=== PATIENT | male | born 1980 | race Caucasian/White ===

== ENCOUNTER 2017-12-19 23:03 | Emergency (ER) | payer OTHER ==
[2017-12-19] MEDS ORDERED: NS 1,000 ML IV ONE (23:09)
--- NOTE | 2017-12-19 23:09 | EDPHY ---
H & P Stated Complaint: Ketamine use, confused, slow to mentate Time Seen by Provider: 12/19/17 23:09 HPI/ROS: HPI CHIEF COMPLAINT: Altered mental status, drug overdose, ketamine abuse HISTORY OF PRESENT ILLNESS: Patient is a 37-year-old male, presents emergency room by EMS after police made contact with him at his local residence as he was causing in noise disturbance. Neighbors called 911. He admits to using ketamine tonight. He injects ketamine intramuscularly. He buys the ketamine online. 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 He states he has been abusing ketamine for the past year to 2 years. He likes the way it makes him feel. He states he gets high. He presents emergency room any slow to mentate he does answer questions appropriately but is very slow and appears intoxicated. He denies any other comma ingestions denies narcotics or alcohol. Denies benzos. States that he does ketamine regularly. Past Medical History: Denies medical history Past Surgical History: Denies surgical history Social History: Abuses ketamine. Family History: Noncontributory ROS REVIEW OF SYSTEMS: 10 Systems were reviewed and negative with the exception of the elements mentioned in the history of present illness. Exam Constitutional nontoxic however appears under the influence of drugs with slow to respond triage nursing summary reviewed, vital signs reviewed, awake/alert. Vital signs stable. Eyes normal conjunctivae and sclera, EOMI, PERRLA. HENT normal inspection, atraumatic, moist mucus membranes, no epistaxis, neck supple/ no meningismus, no raccoon eyes. Respiratory clear to auscultation bilaterally, normal breath sounds, no respiratory distress, no wheezing. Cardiovascular rate normal, regular rhythm, no murmur, no edema, distal pulses normal. Gastrointestinal soft, non-tender, no rebound, no guarding, normal bowel sounds, no distension, no pulsatile mass. Genitourinary no CVA tenderness. Musculoskeletal no midline vertebral tenderness, full range of motion, no calf swelling, no tenderness of extremities, no meningismus, good pulses, neurovascularly intact. Skin pink, warm, & dry, no rash, skin atraumatic. Neurologic slow to respond, moves all 4 extremities equally, motor intact, sensory intact, CN II-XII intact, normal cerebellar, normal vision slow speech. Slight horizontal beating nystagmus. Psychiatric normal mood/affect. Heme/Lymph/Immune no lymphadenopathy. Differential Diagnosis: Includes but is not limited to in a particular order ketamine abuse, ketamine overdose, intracranial bleed, electrolyte disturbance, other drug intoxication Medical Decision Making: Plan for this patient IV establishment clinical research monitor , IV fluid bolus, drug screen, alcohol level, basic electrolytes, CT scan head without contrast due to altered mental status, and somewhat slow to respond. Could possibly be due to ketamine use. Re-evaluation: CT scan head without contrast indication altered mental status, negative for acute bleed. Called my Dr. Lawler. [id number]: Patient re-evaluated this time resting comfortably no acute distress. He is now 100% clinically sober answers questions appropriately. He denies any physical complaints this time. He states he is sober. Answers questions appropriately. He states he took this ketamine derivative to get high. Denies want hurt himself or anybody else. Source: Patient, EMS - Personal History Current Tetanus Diphtheria and Acellular Pertussis (TDAP): No - Medical/Surgical History Hx Asthma: No Hx Chronic Respiratory Disease: No Hx Diabetes: No Hx Cardiac Disease: No Hx Renal Disease: No Hx Cirrhosis: No Hx Alcoholism: No Hx HIV/AIDS: No Hx Splenectomy or Spleen Trauma: No Other PMH: IBS, anxiety, ketamine abuse - Social History Smoking Status: Never smoked Constitutional: Initial Vital Signs Temperature (C) 36.8 C 12/19/17 23:06 Heart Rate 99 12/19/17 23:06 Respiratory Rate 18 12/19/17 23:06 Blood Pressure 145/99 H 12/19/17 23:06 O2 Sat (%) 91 L 12/19/17 23:06 O2 Delivery Mode Nasal Cannula O2 (L/minute) 2 Allergies/Adverse Reactions: No Known Allergies Allergy (Unverified 12/19/17 23:08) Home Medications: Medication Instructions Recorded NK [No Known Home Meds] 08/13/14 Medical Decision Making - Diagnostics Imaging Results: Imaging Impressions Head CT 12/19/17 23:09 Impression: 1. Negative for hemorrhage or mass lesion. 2. Mild generalized atrophy and possible small vessel ischemic gliosis. Results called and discussed with Matthew Rojo MD on 12/19/2017 at 23:42. - Data Points Laboratory Results: Laboratory Results 12/19/17 23:08 12/19/17 23:08 12/20/17 12/19/17 12/19/17 01:50 23:08 23:08 WBC 8.54 10^3/uL 10^3/uL (3.80-9.50) RBC 5.13 10^6/uL 10^6/uL (4.40-6.38) Hgb 15.1 g/dL g/dL (13.7-17.5) Hct 44.5 % % (40.0-51.0) MCV 86.7 fL fL (81.5-99.8) MCH 29.4 pg pg (27.9-34.1) MCHC 33.9 g/dL g/dL (32.4-36.7) RDW 13.2 % % (11.5-15.2) Plt Count 315 10^3/uL 10^3/uL (150-400) MPV 9.4 fL fL (8.7-11.7) Neut % (Auto) 54.3 % % (39.3-74.2) Lymph % (Auto) 35.7 % % (15.0-45.0) [place] % (Auto) 8.4 % % (4.5-13.0) Eos % (Auto) 0.7 % % (0.6-7.6) Baso % (Auto) 0.8 % % (0.3-1.7) Nucleat RBC Rel Count 0.0 % % (0.0-0.2) Absolute Neuts (auto) 4.63 10^3/uL 10^3/uL (1.70-6.50) Absolute Lymphs (auto) 3.05 10^3/uL H 10^3/uL (1.00-3.00) Absolute Monos (auto) 0.72 10^3/uL 10^3/uL (0.30-0.80) Absolute Eos (auto) 0.06 10^3/uL 10^3/uL (0.03-0.40) Absolute Basos (auto) 0.07 10^3/uL 10^3/uL (0.02-0.10) Absolute Nucleated RBC 0.00 10^3/uL 10^3/uL (0-0.01) Immature Gran % 0.1 % % (0.0-1.1) Immature Gran # 0.01 10^3/uL 10^3/uL (0.00-0.10) Sodium 138 mEq/L mEq/L (135-145) Potassium 3.9 mEq/L mEq/L (3.3-5.0) Chloride 101 mEq/L mEq/L (97-110) Carbon Dioxide 23 mEq/l mEq/l (22-31) Anion Gap 14 mEq/L mEq/L (6-14) BUN 18 mg/dL mg/dL (7-23) Creatinine 1.2 mg/dL mg/dL (0.7-1.3) Estimated GFR > 60 Glucose 125 mg/dL H mg/dL (70-100) Calcium 10.0 mg/dL mg/dL (8.5-10.4) Salicylates < 1.0 mg/dL L mg/dL (2.0-20.0) Urine Opiates Screen NEGATIVE (NEGATIVE) Acetaminophen < 10 mcg/mL L mcg/mL (10-30) Urine Barbiturates NEGATIVE (NEGATIVE) Ur Phencyclidine Scrn NEGATIVE (NEGATIVE) Ur Amphetamine Screen NEGATIVE (NEGATIVE) U Benzodiazepines Scrn NON-NEGATIVE H (NEGATIVE) Urine Cocaine Screen NEGATIVE (NEGATIVE) U Marijuana (THC) Screen NEGATIVE (NEGATIVE) Ethyl Alcohol < 10 mg/dL mg/dL (0-10) Medications Given: Discontinued Medications Sodium Chloride (Ns) 1,000 mls @ 0 mls/hr IV ONCE ONE PRN Reason: Wide Open Stop: 12/19/17 23:10 Last Admin: 12/19/17 23:14 Dose: 1,000 mls Departure - Departure Disposition: Home, Routine, Self-Care Clinical Impression: Polysubstance abuse Condition: Good Instructions: Polysubstance Abuse (ED) Additional Instructions: 1. Please do not abuse ketamine. It is very dangerous. Referrals: Patient,NotPresent [Unknown] - As per Instructions
[2017-12-19 23:16] LABS: PLATELET COUNT 315 10^3/uL (150-400)
[2017-12-20 03:33] VITALS: BP 138/80
== END 2017-12-20 03:43 | disposition home or self-care (01) ==
LOC: EDUNIT#
DX: F19.10 Other psychoactive substance abuse, uncomplicated (principal)
CPT/HCPCS: 80305; G0480